=== PATIENT | female | born 1935 | race Caucasian/White ===

== ENCOUNTER 2019-07-10 09:25 | Emergency (ER) | payer MEDICARE ==
--- NOTE | 2019-07-10 09:29 | ERPHSYRPT ---
- History of Present Illness Time Seen by Provider: 07/10/19 09:29 Source: patient Exam Limitations: no limitations Physician History: This is a pleasant 84-year-old female who is on simvastatin and Eliquis and presents with an onset of double vision first 2 days ago, which is since resolved, followed by a brief mild headache. The headache and double vision have both resolved. She does feel dizzy and has intermittent left side whooshing sound. Patient did not hit her head. Patient had bilateral cataract surgery done approximately 15 to 20 years ago. Patient has no chest pain, no headache, no abdominal pain. She has no urinary tract infection symptoms. She states she has no flulike symptoms. She has no history of hypertension but she arrives with a blood pressure of 174/103. This patient is on Eliquis because of a blood clot she had in the past. Timing/Duration: day(s) (2) Severity: mild Character of Deficits: none Deficits: no difficulties Baseline/Normal Cognition: alert oriented x 3 Current Cognition: alert oriented x 3 Baseline Gait: walks w/o assistance Associated Symptoms: ringing in ears (Left side), vision changes, other ( Dizziness) Allergies/Adverse Reactions: No Known Drug Allergies Allergy (Verified 07/10/19 09:43) Home Medications: Simvastatin 5 mg PO DAILY 12/08/12 [History] Apixaban [Eliquis] 5 mg PO DAILY 07/10/19 [History] Oxybutynin Chloride Xl 5 mg [Ditropan XL 5 MG] 5 mg PO DAILY 07/10/19 [ History] Hx Tetanus, Diphtheria Vaccination/Date Given: No Hx Influenza Vaccination/Date Given: No Hx Pneumococcal Vaccination/Date Given: No Travel Risk - International Travel Have you traveled outside of the country in past 3 weeks: No Have you or anyone close to you been diagnosed with or: No Do your reside in a community with a known COVID-19 case?: Yes If Yes where:: [facility] - Coronavirus Screening Has patient experienced Coronavirus symptoms: No - Past Medical History Pertinent Past Medical History: Yes Cardiac History: High Cholesterol - Past Surgical History Past Surgical History: Yes Gastrointestinal: Appendectomy, Cholecystectomy - Social History Smoking Status: Never smoker Exposure to second hand smoke: No Drug Use: none Patient Lives Alone: Yes - Nursing Vital Signs Nursing Vital Signs: Initial Vital Signs Temperature 97.8 F 07/10/19 09:36 Pulse Rate 75 07/10/19 09:36 Respiratory Rate 20 07/10/19 09:36 Blood Pressure 174/103 07/10/19 09:36 O2 Sat by Pulse Oximetry 98 07/10/19 09:36 Pain Scale Pain Intensity 0 - Course Nursing assessment & vital signs reviewed: Yes EKG Interpreted by Me: RATE (59), Sinus Rhythm, Other (Left anterior fascicular block, left ventricular hypertrophy,) Ordered Tests: Active Orders 24 hr Category Date Time Status EKG-ER Only STAT Care 07/10/19 09:56 Active IV Insertion STAT Care 07/10/19 09:53 Active HEAD WITHOUT CONTRAST [CT] Stat Exams 07/10/19 09:54 Completed CBC W DIFF Stat Lab 07/10/19 10:00 Completed CMP Stat Lab 07/10/19 10:00 Completed TROPONIN Q3H Lab 07/10/19 10:00 Completed TROPONIN Q3H Lab 07/10/19 13:00 Ordered TROPONIN Q3H Lab 07/10/19 16:00 Ordered TROPONIN Q3H Lab 07/10/19 19:00 Ordered TROPONIN Q3H Lab 07/10/19 22:00 Ordered UA W/RFX UR CULTURE Stat Lab 07/10/19 09:54 Completed Medication Summary Discontinued Medications Generic Name Dose Route Start Last Admin Trade Name Helen PRN Reason Stop Dose Admin Clonidine 0.1 mg 07/10/19 11:02 07/10/19 11:10 Catapres 0.1 Mg PO 07/10/19 11:03 0.1 mg STAT ONE Administration Clonidine Confirm 07/10/19 11:09 Catapres 0.1 Mg Administered 07/10/19 11:10 Dose 0.1 mg .ROUTE .STK-MED ONE Lab/Rad Data: Laboratory Result Diagrams 07/10/19 10:00 07/10/19 10:00 Laboratory Results 07/10/19 07/10/19 07/10/19 Range/Units 10:00 10:00 10:00 WBC 5.3 (4.0-10.5) K/mm3 RBC 4.20 (4.1-5.4) M/mm3 Hgb 13.8 (12.0-16.0) gm/dl Hct 40.6 (35-47) % MCV 96.7 (78-100) fl MCH 32.9 H (26-32) pg MCHC 34.0 (32-36) g/dl RDW 12.7 (11.5-14.0) % Plt Count 225 (150-450) K/mm3 MPV 9.8 (7.5-11.0) fl Gran % 61.7 (36.0-66.0) % Eos # (Auto) 0.07 (0-0.5) Absolute Lymphs (auto) 1.61 (1.0-4.6) Absolute Monos (auto) 0.32 (0.0-1.3) Lymphocytes % 30.7 (24.0-44.0) % Monocytes % 6.1 (0.0-12.0) % Eosinophils % 1.3 (0.00-5.0) % Basophils % 0.2 (0.0-0.4) % Absolute Granulocytes 3.24 (1.4-6.9) Basophils # 0.01 (0-0.4) Sodium 138 (137-145) mmol/L Potassium 3.8 (3.5-5.1) mmol/L Chloride 107 (98-107) mmol/L Carbon Dioxide 23 (22-30) mmol/L Anion Gap 12.1 (5-15) MEQ/L BUN 11 (7-17) mg/dL Creatinine 0.70 (0.52-1.04) mg/dL Estimated GFR > 60.0 ML/MIN Glucose 122 H (74-106) mg/dL Calcium 8.8 (8.4-10.2) mg/dL Total Bilirubin 0.40 (0.2-1.3) mg/dL AST 25 (14-36) U/L ALT 18 (0-35) U/L Alkaline Phosphatase 83 (38-126) U/L Troponin I < 0.012 (0.000-0.034) ng/mL Serum Total Protein 6.9 (6.3-8.2) g/dL Albumin 3.9 (3.5-5.0) g/dL Urine Color (YELLOW) Urine Appearance (CLEAR) Urine pH (5-6) Ur Specific [place] (1.005-1.025) Urine Protein (Negative) Urine Ketones (NEGATIVE) Urine Blood (0-5) [place]/ul Urine Nitrite (NEGATIVE) Urine Bilirubin (NEGATIVE) Urine Urobilinogen (0-1) mg/dL Ur Leukocyte Esterase (NEGATIVE) Urine WBC (Auto) (0-5) /HPF Urine RBC (Auto) (0-2) /HPF U Epithel Cells (Auto) (FEW) /HPF Urine Bacteria (Auto) (NEGATIVE) /HPF Urine Culture Reflexed (NO) Urine Glucose (NEGATIVE) mg/dL 07/10/19 Range/Units 09:54 WBC (4.0-10.5) K/mm3 RBC (4.1-5.4) M/mm3 Hgb (12.0-16.0) gm/dl Hct (35-47) % MCV (78-100) fl MCH (26-32) pg MCHC (32-36) g/dl RDW (11.5-14.0) % Plt Count (150-450) K/mm3 MPV (7.5-11.0) fl Gran % (36.0-66.0) % Eos # (Auto) (0-0.5) Absolute Lymphs (auto) (1.0-4.6) Absolute Monos (auto) (0.0-1.3) Lymphocytes % (24.0-44.0) % Monocytes % (0.0-12.0) % Eosinophils % (0.00-5.0) % Basophils % (0.0-0.4) % Absolute Granulocytes (1.4-6.9) Basophils # (0-0.4) Sodium (137-145) mmol/L Potassium (3.5-5.1) mmol/L Chloride (98-107) mmol/L Carbon Dioxide (22-30) mmol/L Anion Gap (5-15) MEQ/L BUN (7-17) mg/dL Creatinine (0.52-1.04) mg/dL Estimated GFR ML/MIN Glucose (74-106) mg/dL Calcium (8.4-10.2) mg/dL Total Bilirubin (0.2-1.3) mg/dL AST (14-36) U/L ALT (0-35) U/L Alkaline Phosphatase (38-126) U/L Troponin I (0.000-0.034) ng/mL Serum Total Protein (6.3-8.2) g/dL Albumin (3.5-5.0) g/dL Urine Color YELLOW (YELLOW) Urine Appearance CLEAR (CLEAR) Urine pH 6.0 (5-6) Ur Specific [place] 1.005 (1.005-1.025) Urine Protein NEGATIVE (Negative) Urine Ketones NEGATIVE (NEGATIVE) Urine Blood NEGATIVE (0-5) [place]/ul Urine Nitrite NEGATIVE (NEGATIVE) Urine Bilirubin NEGATIVE (NEGATIVE) Urine Urobilinogen NEGATIVE (0-1) mg/dL Ur Leukocyte Esterase SMALL (NEGATIVE) Urine WBC (Auto) 3-5 (0-5) /HPF Urine RBC (Auto) 0-2 (0-2) /HPF U Epithel Cells (Auto) RARE (FEW) /HPF Urine Bacteria (Auto) NONE (NEGATIVE) /HPF Urine Culture Reflexed NO (NO) Urine Glucose NEGATIVE (NEGATIVE) mg/dL - Progress Progress: improved, re-examined Progress Note: 07/10/19 10:59 CAT scan of the head reveals no acute intracranial process. Counseled pt/family regarding: lab results, diagnosis, need for follow-up, rad results - Departure Departure Disposition: Home Clinical Impression: Dizziness, Hypertension Condition: Stable Critical Care Time: No Referrals: GABRIELA VILLARREAL MD [Primary Care Provider] - Additional Instructions: Drink plenty of fluids. Follow-up with your primary care physician today to make an appointment for follow-up for evaluation of your dizziness and the elevated blood pressure that you arrived with. Monitor your blood pressure twice a day, once in the morning and once in the evening. Keep a daily log for 3 days. Take this log to your primary care doctor at your next appointment date. Prescriptions: Hydrochlorothiazide 25 mg [hydroDIURIL 25 MG] 25 mg PO DAILY #7 tablet
[2019-07-10 10:18] LABS: Absolute Neutrophil Ct (ANC) 3.24 (1.4-6.9); BASOPHIL % 0.2 % (0.0-0.4); Basophil (Absolute #) 0.01 (0-0.4); Eosinophil % 1.3 % (0.00-5.0); Eosinophil (Absolute #) 0.07 (0-0.5); Hematocrit 40.6 % (35-47); Hemoglobin 13.8 gm/dl (12.0-16.0); Lymphocyte (Absolute #) 1.61 (1.0-4.6); Lymphocytes % 30.7 % (24.0-44.0); Mean Cell Volume 96.7 fl (78-100); Mean Corpuscular Hemoglobin 32.9 pg (26-32); Mean Platelet Volume 9.8 fl (7.5-11.0); Monocyte (Absolute #) 0.32 (0.0-1.3); Monocytes % 6.1 % (0.0-12.0); Neutrophil % 61.7 % (36.0-66.0); Platelet Count 225 K/mm3 (150-450); Red Cell Distribution Width 12.7 % (11.5-14.0); White Blood Count 5.3 K/mm3 (4.0-10.5)
[2019-07-10 10:26] LABS: ALBUMIN 3.9 g/dL (3.5-5.0); ALKALINE PHOSPHATASE 83 U/L (38-126); ANION GAP 12.1 MEQ/L (5-15); BLOOD UREA NITROGEN 11 mg/dL (7-17); CHLORIDE 107 mmol/L (98-107); Calcium 8.8 mg/dL (8.4-10.2); Carbon Dioxide 23 mmol/L (22-30); Glucose 122 mg/dL (74-106); Potassium 3.8 mmol/L (3.5-5.1); SGOT/AST 25 U/L (14-36); SGPT/ALT 18 U/L (0-35); SODIUM 138 mmol/L (137-145); Total Protein 6.9 g/dL (6.3-8.2)
--- NOTE | 2019-07-10 10:27 | XRAY ---
Indication: Double vision and dizziness. No known injury. Multiple contiguous axial images obtained through the head without contrast. Comparison: December 08, 2012. There is age-appropriate global atrophy and mild periventricular degenerative micro-ischemia bilaterally. No acute intracranial hemorrhage, abnormal extra-axial fluid collection, or mass effect. Fourth ventricle is midline without hydrocephalus. Bony calvarium intact. Mild mucosal thickening of both ethmoid sinuses. Remaining visualized paranasal sinuses and mastoid air cells are clear. Impression: Mild paranasal sinus disease. Otherwise nonacute senile brain.
[2019-07-10 10:58] LABS: Appearance CLEAR (CLEAR); Bilirubin NEGATIVE (NEGATIVE); Blood NEGATIVE Ery/ul (0-5); Epithelial Cells RARE /HPF (FEW); Glucose NEGATIVE (NEGATIVE); Ketones NEGATIVE (NEGATIVE); Leukocyte Esterase SMALL (NEGATIVE); Nitrite NEGATIVE (NEGATIVE); Protein,Urine Dip NEGATIVE (Negative); RBC 0-2 /HPF (0-2); Specific Gravity 1.005 (1.005-1.025); Urobilinogen NEGATIVE mg/dL (0-1)
[2019-07-10] MEDS ORDERED: Catapres 0.1 MG PO ONE (11:02)
[2019-07-10] MEDS ORDERED: Catapres 0.1 MG ONE (11:09)
[2019-07-10 12:18] VITALS: BP 158/82; PULSE 70; O2SAT 98
== END 2019-07-10 12:18 | disposition home or self-care (01) ==
LOC: ED 09:25
DX: R42 Dizziness and giddiness (principal); I10 Essential (primary) hypertension; Z79.899 Other long term (current) drug therapy; E78.00 Pure hypercholesterolemia, unspecified
CPT/HCPCS: 36000; 36415; 70450; 80053; 81001; 84484; 85025; 93005; 99284; A9270-GY

== ENCOUNTER 2019-08-05 11:56 | Emergency (ER) | payer MEDICARE ==
--- NOTE | 2019-08-05 12:02 | ERPHSYRPT ---
- History of Present Illness Time Seen by Provider: 08/05/19 12:01 Source: patient Exam Limitations: no limitations Physician History: Is an 84-year-old pleasant white female with a history of stroke in the distant past with the only residual effect is intermittently she gets dizzy. She also has a history of hypertension and she takes lisinopril/hydrochlorothiazide combination medication. She is also on Eliquis. In the last several days, the patient has felt weak and tired. She denies chest pain and she denies shortness of breath. He has no abdominal pain. She has no urinary tract infection symptoms. His were improving within the last 2 days symptoms have worsened. Also complains of left temporal headache. She denies any trauma. She has no visual changes. She has had no nausea vomiting or diarrhea. Patient was seen in this emergency department on July 10, 2019 for evaluation and management of dizziness. At that time she was very hypertensive and she was started on hydrochlorothiazide. Since that time, she is seen her primary care physician who started her on lisinopril/hydrochlorothiazide combination medication. Head on 07/10/2019 shows a nonacute senile brain. An EKG performed on that date reveals a heart rate of 59, sinus rhythm and a left anterior fascicular block. Timing/Duration: day(s) (2), worse Severity: moderate Associated Symptoms: malaise, weakness, No nausea, No vomiting, No abdominal pain, No cough, No chills, No chest pain, No fever, No syncope Allergies/Adverse Reactions: No Known Drug Allergies Allergy (Verified 08/05/19 12:05) Home Medications: Simvastatin 5 mg PO DAILY 12/08/12 [History] Apixaban [Eliquis] 5 mg PO DAILY 07/10/19 [History] Oxybutynin Chloride Xl 5 mg [Ditropan XL 5 MG] 5 mg PO DAILY 07/10/19 [ History] Lisinopril/Hydrochlorothiazide [Lisinopril-Hctz 20-12.5 mg Tab] 1 ea DAILY 08/04 [History] Hx Tetanus, Diphtheria Vaccination/Date Given: No Hx Influenza Vaccination/Date Given: No Hx Pneumococcal Vaccination/Date Given: No Travel Risk - International Travel Have you traveled outside of the country in past 3 weeks: No Have you or anyone close to you been diagnosed with or: No Do your reside in a community with a known COVID-19 case?: Yes If Yes where:: [facility] [place] - Coronavirus Screening Has patient experienced Coronavirus symptoms: No - Review of Systems Constitutional: Weakness Eyes: No Symptoms Ears, Nose, & Throat: No Symptoms Respiratory: No Symptoms Cardiac: No Symptoms Abdominal/Gastrointestinal: No Symptoms Genitourinary Symptoms: No Symptoms Musculoskeletal: No Symptoms Skin: No Symptoms Neurological: No Symptoms Psychological: No Symptoms Endocrine: No Symptoms Hematologic/Lymphatic: No Symptoms Immunological/Allergic: No Symptoms All Other Systems: Reviewed and Negative - Past Medical History Pertinent Past Medical History: Yes Neurological History: Stroke ENT History: Cataracts Cardiac History: High Cholesterol Respiratory History: No Pertinent History Endocrine Medical History: No Pertinent History Musculoskeletal History: No Pertinent History GI Medical History: Gallbladder Disease History: No Pertinent History Psycho-Social History: No Pertinent History Female Reproductive Disorders: No Pertinent History - Past Surgical History Past Surgical History: Yes Gastrointestinal: Appendectomy, Cholecystectomy - Social History Smoking Status: Never smoker Exposure to second hand smoke: No Drug Use: none Patient Lives Alone: Yes - Nursing Vital Signs Nursing Vital Signs: Initial Vital Signs Temperature 97.7 F 08/05/19 11:56 Pulse Rate 67 08/05/19 11:56 Respiratory Rate 18 08/05/19 11:56 Blood Pressure 152/79 08/05/19 11:56 O2 Sat by Pulse Oximetry 97 08/05/19 11:56 Pain Scale Pain Intensity 2 - Physical Exam General Appearance: mild distress, alert, anxiety Eye Exam: PERRL/EOMI, eyes nml inspection Ears, Nose, Throat Exam: normal ENT inspection, moist mucous membranes Neck Exam: normal inspection, non-tender, supple, full range of motion Respiratory Exam: normal breath sounds, lungs clear, airway intact, No chest tenderness, No respiratory distress Cardiovascular Exam: regular rate/rhythm, normal heart sounds, normal peripheral pulses Gastrointestinal/Abdomen Exam: soft, normal bowel sounds, No tenderness Pelvic Exam: not done Rectal Exam: not done Back Exam: normal inspection, normal range of motion, No CVA tenderness, No vertebral tenderness Extremity Exam: normal inspection, normal range of motion, pelvis stable Neurologic Exam: alert, oriented x 3, cooperative, chief safety officer II-XII nml as tested, No facial droop, No slurred speech Skin Exam: normal color, warm, dry Lymphatic Exam: No adenopathy SpO2 Interpretation: normal O2 Delivery: Room Air - Course Nursing assessment & vital signs reviewed: Yes EKG Interpreted by Me: RATE (66), Sinus Rhythm, LAFB, NORMAL INTERVALS, NORMAL QRS, Other (Comparison EKG dated 07/10/2019. There is no change. There is no evidence of any ischemic changes on either EKG) Ordered Tests: Active Orders 24 hr Category Date Time Status Sales Service Assistant STAT Care 08/05/19 12:44 Active EKG-ER Only STAT Care 08/05/19 12:43 Active IV Insertion STAT Care 08/05/19 12:43 Active Isolation, Initiate & Maintain Q4H Care 08/05/19 12:04 Active NPO (ED) STAT Care 08/05/19 12:44 Active CHEST 1 VIEW (PORTABLE) Stat Exams 08/05/19 12:44 Taken HEAD WITHOUT CONTRAST [CT] Stat Exams 08/05/19 12:44 Taken CBC W DIFF Stat Lab 08/05/19 13:05 Completed CMP Stat Lab 08/05/19 13:05 Completed TROPONIN Q3H Lab 08/05/19 13:00 Completed TROPONIN Q3H Lab 08/05/19 15:45 Ordered TROPONIN Q3H Lab 08/05/19 18:45 Ordered TROPONIN Q3H Lab 08/05/19 21:45 Ordered UA W/RFX UR CULTURE Stat Lab 08/05/19 14:17 Completed Medication Summary Discontinued Medications Generic Name Dose Route Start Last Admin Trade Name Freq PRN Reason Stop Dose Admin Sodium Chloride 1,000 mls @ 999 mls/hr 08/05/19 12:43 08/05/19 13:16 Sodium Chloride 0.9% 1000 Ml IV 08/05/19 13:43 999 mls/hr .Q1H1M STA Administration Sodium Chloride Confirm 08/05/19 13:06 Sodium Chloride 0.9% 1000 Ml Administered 08/05/19 13:07 Dose 1,000 mls @ ud .ROUTE .STK-MED ONE Lab/Rad Data: Laboratory Result Diagrams 08/05/19 13:05 08/05/19 13:05 Laboratory Results 08/05/19 08/05/19 08/05/19 Range/Units 14:17 13:05 13:05 WBC 5.7 (4.0-10.5) K/mm3 RBC 4.03 L (4.1-5.4) M/mm3 Hgb 13.6 (12.0-16.0) gm/dl Hct 37.8 (35-47) % MCV 93.8 (78-100) fl MCH 33.7 H (26-32) pg MCHC 36.0 (32-36) g/dl RDW 11.9 (11.5-14.0) % Plt Count 239 (150-450) K/mm3 MPV 9.7 (7.5-11.0) fl Gran % 54.3 (36.0-66.0) % Eos # (Auto) 0.11 (0-0.5) Absolute Lymphs (auto) 2.08 (1.0-4.6) Absolute Monos (auto) 0.42 (0.0-1.3) Lymphocytes % 36.3 (24.0-44.0) % Monocytes % 7.3 (0.0-12.0) % Eosinophils % 1.9 (0.00-5.0) % Basophils % 0.2 (0.0-0.4) % Absolute Granulocytes 3.11 (1.4-6.9) Basophils # 0.01 (0-0.4) Sodium 130 L (137-145) mmol/L Potassium 3.9 (3.5-5.1) mmol/L Chloride 95 L (98-107) mmol/L Carbon Dioxide 26 (22-30) mmol/L Anion Gap 13.4 (5-15) MEQ/L BUN 11 (7-17) mg/dL Creatinine 0.76 (0.52-1.04) mg/dL Estimated GFR > 60.0 ML/MIN Glucose 104 (74-106) mg/dL Calcium 8.6 (8.4-10.2) mg/dL Total Bilirubin 0.40 (0.2-1.3) mg/dL AST 31 (14-36) U/L ALT 14 (0-35) U/L Alkaline Phosphatase 79 (38-126) U/L Troponin I (0.000-0.034) ng/mL Serum Total Protein 6.5 (6.3-8.2) g/dL Albumin 3.7 (3.5-5.0) g/dL Urine Color YELLOW (YELLOW) Urine Appearance CLEAR (CLEAR) Urine pH 8.0 (5-6) Ur Specific [place] 1.008 (1.005-1.025) Urine Protein NEGATIVE (Negative) Urine Ketones NEGATIVE (NEGATIVE) Urine Blood NEGATIVE (0-5) [place]/ul Urine Nitrite NEGATIVE (NEGATIVE) Urine Bilirubin NEGATIVE (NEGATIVE) Urine Urobilinogen NEGATIVE (0-1) mg/dL Ur Leukocyte Esterase SMALL (NEGATIVE) Urine WBC (Auto) 3-5 (0-5) /HPF Urine RBC (Auto) NONE SEEN (0-2) /HPF U Epithel Cells (Auto) RARE (FEW) /HPF Urine Bacteria (Auto) NONE (NEGATIVE) /HPF Urine Mucus (Auto) SLIGHT (NEGATIVE) /HPF Urine Culture Reflexed NO (NO) Urine Glucose NEGATIVE (NEGATIVE) mg/dL 08/05/19 Range/Units 13:00 WBC (4.0-10.5) K/mm3 RBC (4.1-5.4) M/mm3 Hgb (12.0-16.0) gm/dl Hct (35-47) % MCV (78-100) fl MCH (26-32) pg MCHC (32-36) g/dl RDW (11.5-14.0) % Plt Count (150-450) K/mm3 MPV (7.5-11.0) fl Gran % (36.0-66.0) % Eos # (Auto) (0-0.5) Absolute Lymphs (auto) (1.0-4.6) Absolute Monos (auto) (0.0-1.3) Lymphocytes % (24.0-44.0) % Monocytes % (0.0-12.0) % Eosinophils % (0.00-5.0) % Basophils % (0.0-0.4) % Absolute Granulocytes (1.4-6.9) Basophils # (0-0.4) Sodium (137-145) mmol/L Potassium (3.5-5.1) mmol/L Chloride (98-107) mmol/L Carbon Dioxide (22-30) mmol/L Anion Gap (5-15) MEQ/L BUN (7-17) mg/dL Creatinine (0.52-1.04) mg/dL Estimated GFR ML/MIN Glucose (74-106) mg/dL Calcium (8.4-10.2) mg/dL Total Bilirubin (0.2-1.3) mg/dL AST (14-36) U/L ALT (0-35) U/L Alkaline Phosphatase (38-126) U/L Troponin I < 0.012 (0.000-0.034) ng/mL Serum Total Protein (6.3-8.2) g/dL Albumin (3.5-5.0) g/dL Urine Color (YELLOW) Urine Appearance (CLEAR) Urine pH (5-6) Ur Specific [place] (1.005-1.025) Urine Protein (Negative) Urine Ketones (NEGATIVE) Urine Blood (0-5) [place]/ul Urine Nitrite (NEGATIVE) Urine Bilirubin (NEGATIVE) Urine Urobilinogen (0-1) mg/dL Ur Leukocyte Esterase (NEGATIVE) Urine WBC (Auto) (0-5) /HPF Urine RBC (Auto) (0-2) /HPF U Epithel Cells (Auto) (FEW) /HPF Urine Bacteria (Auto) (NEGATIVE) /HPF Urine Mucus (Auto) (NEGATIVE) /HPF Urine Culture Reflexed (NO) Urine Glucose (NEGATIVE) mg/dL - Progress Progress: improved, re-examined Progress Note: 08/05/19 14:12 Cat scan of the head reveals no acute intracranial abnormality 08/05/19 14:42 Chest x-ray reveals no evidence of any intra-thoracic/pulmonary process Medical decision making: This patient presents with several day history of weakness and fatigue. Patient is able to ambulate. She is tolerating oral intake. Patient denies chest pain and she denies shortness of breath. Our work -up today did not reveal anything acute. Clinically, she is neurologically intact, her abdomen is benign. Patient does not have any evidence of anemia, acute myocardial infarction, hypo-kalemia, acute renal failure, dehydration or urinary tract infection. Patient did start a new medication (lisinopril) within the last 2 to 3 weeks. Weakness and fatigue is listed amongst the potential adverse effects of this medication. Patient will benefit from further evaluation as an outpatient with her primary care physician Counseled pt/family regarding: lab results, diagnosis, need for follow-up, rad results - Departure Departure Disposition: Home Clinical Impression: Weakness Condition: Stable Critical Care Time: No Referrals: GABRIELA VILLARREAL MD [Primary Care Provider] - Additional Instructions: Hold your lisinopril. Call your primary care physician on Wednesday, August 07, 2019 to arrange a follow-up appointment for further management of your symptoms. Return to the emergency department if your symptoms worsen
[2019-08-05] MEDS ORDERED: Sodium Chloride 0.9% 1000 ML 1,000 ML IV STA (12:43)
[2019-08-05] MEDS ORDERED: Sodium Chloride 0.9% 1000 ML 1,000 ML ONE (13:06)
[2019-08-05 13:09] LABS: Absolute Neutrophil Ct (ANC) 3.11 (1.4-6.9); BASOPHIL % 0.2 % (0.0-0.4); Basophil (Absolute #) 0.01 (0-0.4); Eosinophil % 1.9 % (0.00-5.0); Eosinophil (Absolute #) 0.11 (0-0.5); Hematocrit 37.8 % (35-47); Hemoglobin 13.6 gm/dl (12.0-16.0); Lymphocyte (Absolute #) 2.08 (1.0-4.6); Lymphocytes % 36.3 % (24.0-44.0); Mean Cell Volume 93.8 fl (78-100); Mean Corpuscular Hemoglobin 33.7 pg (26-32); Mean Platelet Volume 9.7 fl (7.5-11.0); Monocyte (Absolute #) 0.42 (0.0-1.3); Monocytes % 7.3 % (0.0-12.0); Neutrophil % 54.3 % (36.0-66.0); Platelet Count 239 K/mm3 (150-450); Red Blood Count 4.03 M/mm3 (4.1-5.4); Red Cell Distribution Width 11.9 % (11.5-14.0); White Blood Count 5.7 K/mm3 (4.0-10.5)
[2019-08-05 13:43] LABS: ALBUMIN 3.7 g/dL (3.5-5.0); ALKALINE PHOSPHATASE 79 U/L (38-126); ANION GAP 13.4 MEQ/L (5-15); BLOOD UREA NITROGEN 11 mg/dL (7-17); CHLORIDE 95 mmol/L (98-107); Calcium 8.6 mg/dL (8.4-10.2); Carbon Dioxide 26 mmol/L (22-30); Creatinine 1 0.76 mg/dL (0.52-1.04); Glucose 104 mg/dL (74-106); Potassium 3.9 mmol/L (3.5-5.1); SGOT/AST 31 U/L (14-36); SGPT/ALT 14 U/L (0-35); SODIUM 130 mmol/L (137-145); Total Protein 6.5 g/dL (6.3-8.2)
[2019-08-05 14:33] LABS: Appearance CLEAR (CLEAR); Bilirubin NEGATIVE (NEGATIVE); Blood NEGATIVE Ery/ul (0-5); Glucose NEGATIVE (NEGATIVE); Ketones NEGATIVE (NEGATIVE); Leukocyte Esterase SMALL (NEGATIVE); Mucus SLIGHT /HPF (NEGATIVE); Nitrite NEGATIVE (NEGATIVE); Protein,Urine Dip NEGATIVE (Negative); Specific Gravity 1.008 (1.005-1.025); Urobilinogen NEGATIVE mg/dL (0-1)
[2019-08-05 14:34] LABS: Epithelial Cells RARE /HPF (FEW); RBC NONE SEEN /HPF (0-2)
[2019-08-05 15:31] VITALS: BP 166/80; PULSE 76; O2SAT 97
--- NOTE | 2019-08-05 20:13 | XRAY ---
Indication: Headache and weakness. Comparison: March 26, 2011. Portable chest remains clear. Heart is not enlarged. Bony thorax intact again with mild osteopenia and degenerative changes. No new/acute findings.
--- NOTE | 2019-08-05 20:15 | XRAY ---
Indication: Headache and weakness. Multiple contiguous axial images obtained through the head without contrast. Comparison: July 10, 2019. Stable age-appropriate global atrophy and mild periventricular degenerative micro-ischemia. Again no acute intracranial hemorrhage, abnormal extra-axial fluid collection, or mass effect. Fourth ventricle is midline without hydrocephalus. Bony calvarium intact. Again mild mucosal thickening both ethmoid sinuses. Remaining visualized paranasal sinuses and mastoid air cells are clear. Impression: Stable nonacute senile brain again with mild paranasal sinus disease. Comment: Preliminary interpretation was made by [facility]. No critical discrepancy.
== END 2019-08-05 15:32 | disposition home or self-care (01) ==
LOC: ED 11:56
DX: R53.1 Weakness (principal)
CPT/HCPCS: 36000; 36415; 70450; 71045; 80053; 81001; 84484; 85025; 93005; 93041; 96360; 99284